=== PATIENT | female | born 1960 | race Two or more races ===

== ENCOUNTER 2017-11-24 09:49 | Outpatient (RCR) | payer BC | END 2017-11-30 | disposition home or self-care (01) | LOC: WCC 09:49 | DX: T86.828 Other complications of skin graft (allograft) (autograft) (principal); L98.492 Non-pressure chronic ulcer of skin of other sites with fat layer exposed; T81.31XS Disruption of external operation (surgical) wound, not elsewhere classified, sequela | CPT/HCPCS: G0463 ×2; 99204 ==

== ENCOUNTER 2017-11-24 13:20 | Outpatient (RCR) | payer SELFPAY ==
--- NOTE | 2017-11-27 11:50 | Consultation ---
Consult Note Consult Note OPEN WOUND UNDER RIGHT BREAST AND JUST BELOW AREOLA LEFT BREAST BETADINE APPLIED TO WOUNDS Assessment/Plan WILL DO HYPERBARIC IN [place] WHICH IS CLOSER TO HER VITAL SIGNS 137 /84 PULSE 64 TEMP 97.6 Nba Fuentes MD Nov 27, 2017 11:50
== END 2017-11-30 | disposition home or self-care (01) ==
LOC: WCC 13:20
DX: T86.828 Other complications of skin graft (allograft) (autograft) (principal); L98.492 Non-pressure chronic ulcer of skin of other sites with fat layer exposed; T81.31XS Disruption of external operation (surgical) wound, not elsewhere classified, sequela